=== PATIENT | male | born 1985 | race African-American/Black ===

== ENCOUNTER 2018-09-21 17:21 | Emergency (ER) | payer OTHER ==
[~2018-09-21] VITALS: Ht 170.2 cm; Wt 68.0 kg
[2018-09-21] MEDS ORDERED: INTESTINEX680 M1 PO (19:28)
[2018-09-21] MEDS ORDERED: AMOX-CLAV 875-1 EACH PO (19:28)
[2018-09-21] MEDS ORDERED: KETO10TA2 PO (19:28)
[2018-09-21] MEDS ORDERED: MAALOX ADVANCE355 ML PO (19:28)
== END 2018-09-21 20:57 | disposition home or self-care (01) ==
LOC: ER 17:21
DX: S11.82XA Laceration with foreign body of other specified part of neck, initial encounter (principal); J03.90 Acute tonsillitis, unspecified; T17.298A Other foreign object in pharynx causing other injury, initial encounter; W26.8XXA Contact with other sharp object(s), not elsewhere classified, initial encounter; Y93.89 Activity, other specified; Y92.89 Other specified places as the place of occurrence of the external cause; Y99.8 Other external cause status

== ENCOUNTER → 2019-02-23 | Emergency (ER) | payer OTHER ==
[~2019-02-23] VITALS: Ht 188 cm; Wt 52.2 kg
[~2019-02-23] MED LIST: AMOX-CLAV 875-1 EACH PO; INTESTINEX680 M1 PO; KETO10TA2 PO; MAALOX ADVANCE355 ML PO
== END | disposition home or self-care (01) ==
LOC: ER 21:53
DX: M54.89 Other dorsalgia (principal)

== ENCOUNTER 2019-08-09 06:10 | Emergency (ER) | payer OTHER ==
[~2019-08-09] VITALS: Ht 182.9 cm; Wt 54.4 kg
== END 2019-08-09 13:42 | disposition home or self-care (01) ==
LOC: ER 06:10
DX: M94.0 Chondrocostal junction syndrome [Tietze] (principal)

== ENCOUNTER 2019-08-25 13:09 | Emergency (ER) | payer OTHER ==
[~2019-08-25] VITALS: Ht 175.3 cm; Wt 69.9 kg
== END 2019-08-25 14:35 | disposition home or self-care (01) ==
LOC: ER 13:09
DX: L73.8 Other specified follicular disorders (principal)